=== PATIENT | male | born 1970 | race Caucasian/White ===

== ENCOUNTER → 2020-12-31 07:36 | Outpatient (CLI) | payer OTHER, SELFPAY ==
[2020-12-31 08:44] LABS: Add Manual Diff / Slide Review NO; Basophils Absolute Auto 0 /uL (0-100); Basophils Percent Auto 0.4 % (0-2); Eosinophils Absolute Auto 100 /uL (0-450); Eosinophils Percent Auto 1.5 % (2-4); Hematocrit 44.5 % (41-53); Lymphocytes Absolute Auto 3200 /uL (1100-4500); Mean Corpuscular HGB Conc 33.6 % (30-36); Mean Corpuscular Hemoglobin 29.2 PG (26-34); Mean Corpuscular Volume 86.7 fL (80-100); Monocytes Absolute Auto 800 /uL (0-900); Neutrophils Absolute Auto 4600 /uL (1500-7000); Neutrophils Percent Auto 52.1 % (50-75); Platelet Count 165 X10^3/uL (150-400); Red Blood Cell Count 5.13 X10^6/uL (4.5-5.9); Red Cell Distribution Width 13.7 % (11.6-14.8); White Blood Cell Count 8.8 X10^3/uL (4.5-11.0)
[2020-12-31 08:55] LABS: Alanine Aminotransferase 35 IU/L (<50); Albumin 4.5 g/dL (3.5-5.0); Albumin Globulin Ratio 1.6 (1.0-2.8); Alkaline Phosphatase 59 U/L (38-126); Aspartate Aminotransferase 29 IU/L (17-59); BUN Creatinine Ratio 15.1 (6-22); Bilirubin Total 0.6 mg/dL (0.2-1.3); Blood Urea Nitrogen 14 mg/dL (9-20); Calcium 9.7 mg/dL (8.4-10.2); Carbon Dioxide 25 mmol/L (22-32); Chloride 105 mmol/L (98-107); Cholesterol 211 mg/dL (140-199); Estimated Glomerular Filt Rate > 60.0 mL/min (>60); Globulin 2.8 g/dL (1.7-4.1); Glucose 130 mg/dL (70-100); HDL Cholesterol 33 mg/dL (40-60); HEMOLYSIS < 15 (0-50); LDL Cholesterol Calculated 132 mg/dL (<100); Potassium 4.2 mmol/L (3.4-5.1); Sodium 138 mmol/L (137-145); Total Protein 7.3 g/dL (6.3-8.2); Triglycerides 231 mg/dL (35-150)
[2020-12-31 09:12] LABS: Free T3, Triiodothyronine Free 4.26 pg/mL (2.77-5.27); Free T4, Direct Thyroxine 1.14 ng/dL (0.78-2.19)
[2020-12-31 09:25] LABS: Thyroid Stimulating Hormone 2.62 uIU/mL (0.47-4.68)
[2020-12-31 09:34] LABS: Estradiol, Total 41.6 pg/mL
[2021-01-01 05:42] LABS: C Peptide 4.8 ng/mL (1.1-4.4); Insulin Level Total 22.2 uIU/mL (2.6-24.9)
[2021-01-05 15:07] LABS: Dihydrotestosterone 11 ng/dL (.)
[2021-01-06 07:53] LABS: Percent Free Testosterone 3.27 % (1.50-4.20); Testosterone Free 7.73 ng/dL (5.00-21.00); Testosterone Total 236.4 ng/dL (264.0-916.0)
== END ==
PROVIDERS: Referring Provider Naturopath; Visit Provider Naturopath
DX: Z00.01 Encounter for general adult medical examination with abnormal findings (principal); E66.9 Obesity, unspecified
CPT/HCPCS: 36415; 80053; 80061; 82642; 82670; 83525; 84402; 84403; 84439; 84443; 84481; 84681; 85025